=== PATIENT | female | born 1985 | race American Indian/Alaskan Native ===

== ENCOUNTER 2017-11-19 12:34 | Emergency (ER) | payer MEDICAID ==
[2017-11-19 12:34] VITALS: BMI 31.9
[2017-11-19 13:00] VITALS: TEMP 98.7; O2SAT 99
--- NOTE | 2017-11-19 14:27 | C.PDOC ---
History Of Present Illness 32-year-old female, presents to the emergency department with complaints of swelling to the rectal area. Patient reports it is non-tender, however she notices blood when she wipes after having a bowel movement. She denies any abdominal pain, back pain or dysuria. Time Seen by Provider: 11/19/17 13:46 Chief Complaint (Nursing): Medical Clearance History Per: Patient History/Exam Limitations: no limitations Onset/Duration Of Symptoms: Days Current Symptoms Are (Timing): Still Present Past Medical History Reviewed: Historical Data, Nursing Documentation, Vital Signs Vital Signs: Last Vital Signs Temp 98.7 F 11/19/17 12:56 Pulse 99 H 11/19/17 12:56 Resp 14 11/19/17 12:56 BP 124/76 11/19/17 12:56 Pulse Ox 99 11/19/17 12:56 Family History: States: No Known Family Hx - Social History Hx Tobacco Use: Yes (former smoker) Hx Alcohol Use: No Hx Substance Use: Yes - Immunization History Hx Tetanus Toxoid Vaccination: No Hx Influenza Vaccination: No Hx Pneumococcal Vaccination: No Review Of Systems Constitutional: Negative for: Fever, Chills Cardiovascular: Negative for: Light Headedness Gastrointestinal: Positive for: Hematochezia. Negative for: Vomiting, Abdominal Pain, Rectal Pain Skin: Negative for: Rash Neurological: Negative for: Weakness, Headache, Dizziness Physical Exam - Physical Exam Appears: Well, Non-toxic, No Acute Distress Skin: Warm, Dry, No Rash Head: Atraumatic, Normacephalic Eye(s): bilateral: Normal Inspection Nose: Normal Oral Mucosa: Moist Lips: Normal Appearing Neck: Normal ROM Cardiovascular: Rhythm Regular, No Murmur Respiratory: Normal Breath Sounds, No Accessory Muscle Use Gastrointestinal/Abdominal: Soft, No Tenderness Rectal: No Heme Positive, Hemorrhoids (soft, non-tender, non-thrombosed external hemorrhoid ), Other (No active bleeding) Extremity: Normal ROM, No Deformity Neurological/Psych: Oriented x3, Normal Speech ED Course And Treatment O2 Sat by Pulse Oximetry: 99 Pulse Ox Interpretation: Normal (RA) Disposition - Disposition Referrals: [facility] [Outside] Disposition: HOME/ ROUTINE Disposition Time: 14:21 Condition: STABLE Additional Instructions: Perform Sitz baths, sitting in a tub of warm water to soothe the area. Follow up with the medical doctor within 1-2 days. return if worsened. Prescriptions: Docusate [Colace] 100 mg PO DAILY #30 cap Hydrocortisone 2.5% (Rectal) [Anusol-Hc] 1 appl RC BID #1 tube Instructions: Hemorrhoids (DC) Forms: [facility] (Romansh) - Clinical Impression Clinical Impression: Hemorrhoids - Scribe Statement The provider has reviewed the documentation as recorded by the Scribe (Jose Antonio Larry) All medical record entries made by the Scribe were at my direction and personally dictated by me. I have reviewed the chart and agree that the record accurately reflects my personal performance of the history, physical exam, medical decision making, and the department course for this patient. I have also personally directed, reviewed, and agree with the discharge instructions and disposition.
[2017-11-19 14:41] VITALS: BP 110/71; PULSE 66; RESP 18
== END 2017-11-19 14:41 | disposition home or self-care (01) ==
LOC: C.ER 12:34
DX: K64.4 Residual hemorrhoidal skin tags (principal); Z87.891 Personal history of nicotine dependence